=== PATIENT | female | born 1995 | race Caucasian/White ===

== ENCOUNTER → 2021-07-11 13:28 | Outpatient (CLI) | payer OTHER, SELFPAY ==
[2021-07-11 14:36] LABS: NATERA MAILED SPECIMEN
== END ==
PROVIDERS: Referring Provider Obstetrics & Gynecology; Visit Provider Obstetrics & Gynecology
DX: Z34.81 Encounter for supervision of other normal pregnancy, first trimester (principal); Z31.430 Encounter of female for testing for genetic disease carrier status for procreative management
CPT/HCPCS: 36415

== ENCOUNTER → 2021-10-24 10:38 | Outpatient (CLI) | payer OTHER, SELFPAY ==
[2021-10-24 10:52] LABS: Absolute Lymphocyte Count 0.68 X10^3/uL (0.83-4.51); Absolute Neutrophil Count 7.8 X10^3/uL (2.0-7.7); Basophil# 0.01 X10^3/uL; Basophil% 0.1 % (0-1); Eosinophil# 0.21 X10^3/uL; Eosinophils% 2.3 % (0-5); Hematocrit 34.6 % (37-47); Hemoglobin 12.3 g/dL (12.0-15.0); Lymphocyte # 0.68 X10^3/ul (0.83-4.51); Lymphocyte % 7.5 % (19-41); Mean Corp Hgb Conc 35.5 g/dL (32-36); Mean Corpuscular Hgb 30.1 pg (27.0-32.0); Mean Corpuscular Volume 84.6 fL (81-99); Mean Platelet Vol. 10.2 fl (6.2-12.0); Monocyte# 0.31 X10^3/uL; Monocyte% 3.4 % (0-10); NRBC Flagged by Analyzer 0 % (0-5); Neutrophil % 86.5 % (47-70); Platelet Count 191 K/mm3 (150-450); RBC Distribution Width CV 12.7 % (11.6-14.6); RBC Distribution Width SD 38.1 fl (35.1-43.9); Red Blood Count 4.09 M/mm3 (4.2-5.4)
[2021-10-24 11:17] LABS: Glucose Challenge Gest 1H 50g 152 mg/dL (70-140)
[2021-10-24 12:00] LABS: Hepatitis C Antibody Non-Reactive (Nonreactive); Syphilis Antibodies Non-reactive
== END ==
PROVIDERS: Referring Provider Obstetrics & Gynecology; Visit Provider Obstetrics & Gynecology
DX: O26.892 Other specified pregnancy related conditions, second trimester (principal); R09.81 Nasal congestion; Z3A.22 22 weeks gestation of pregnancy
CPT/HCPCS: 36415; 82950; 85025; 86780; 86803; 87635; U0005; U0003

== ENCOUNTER 2021-12-05 08:07 | Outpatient (CLI) | payer OTHER, SELFPAY ==
[2021-12-05 09:06] LABS: Glucose GTT-Gestation. Fasting 87 mg/dL (<105)
[2021-12-05 09:51] LABS: Glucose GTT-Gestational 1 Hr 183 mg/dL (<190)
[2021-12-05 11:27] LABS: Glucose GTT-Gestational 2 Hr 115 mg/dL (<165)
[2021-12-05 12:02] LABS: Glucose GTT-Gestational 3 Hr 45 L (<145)
== END 2021-12-05 23:59 | disposition home or self-care (01) ==
PROVIDERS: Referring Provider Obstetrics & Gynecology; Visit Provider Obstetrics & Gynecology
DX: Z13.1 Encounter for screening for diabetes mellitus (principal)
CPT/HCPCS: 36415; 82951; 82952

== ENCOUNTER 2022-01-02 17:14 | Outpatient (CLI) | payer OTHER, SELFPAY | END 2022-01-02 23:59 | disposition home or self-care (01) | LOC: LABSPEC 17:15 | PROVIDERS: Visit Provider Obstetrics & Gynecology | DX: Z34.01 Encounter for supervision of normal first pregnancy, first trimester (principal) | CPT/HCPCS: 87077; 87081; 87186 ==

== ENCOUNTER 2022-01-08 11:41 | Outpatient (CLI) | payer OTHER, SELFPAY ==
--- NOTE | 2022-01-08 11:44 | US_ITS ---
STUDY: SECOND AND THIRD TRIMESTER OBSTETRICAL ULTRASOUND REASON FOR EXAM: Female, 27 years old small for gestational age LMP: 04/23/2021. TECHNIQUE: Transabdominal TECHNICAL QUALITY: Adequate. PRIOR ULTRASOUND: None. FINDINGS: There is a single intrauterine fetus. The fetus is in a cephalic presentation. There is demonstrated cardiac activity with a heart rate of 140 bpm. There is a normal amniotic fluid volume. The largest amniotic fluid pocket measures 4.5 cm. The amniotic fluid index (FRANCESCA) is 10.8 cm. The placenta is anterior in location and is not low lying. There are Grade 3 placental changes. The cervix measures 3.8 cm in length. The adnexal regions are not visualized. BIOMETRY: BPD: 8.97 cm: 36 weeks, 2 days HC: 32.6 cm: 36 weeks, 6 days AC: 33.08 cm: 36 weeks, 6 days FL: 6.7 cm: 34 weeks, 3 days CI: 79% FL/BPD: 75% FL/HC: FL/AC: 20% HC/AC: 0.9 age by current US: 36 weeks, 3 days. YURI by current US: 02/02/2022. Estimated weight: 2910 grams, +/- 436 grams, 36 %. Age by LMP: 37 weeks, 1 days. YURI by LMP: 01/28/2022. US/OB Limited With Biometrics IMPRESSION: Single live intrauterine gestation with mean gestational age of 36 weeks and 3 days. Electronically Signed: Kenyon Del Real MD at 15:33 EST ,
== END 2022-01-08 23:59 | disposition home or self-care (01) ==
LOC: US 11:44
PROVIDERS: Referring Provider Obstetrics & Gynecology; Visit Provider Obstetrics & Gynecology
DX: O36.5930 Maternal care for other known or suspected poor fetal growth, third trimester, not applicable or unspecified (principal)
CPT/HCPCS: 76816

== ENCOUNTER 2022-02-02 15:37 | Outpatient (CLI) | payer OTHER, SELFPAY ==
--- NOTE | 2022-02-02 15:42 | US_ITS ---
History: growth Obstetrical ultrasound: Comparison: January 08, 2022 Findings: Single live intrauterine gestation in cephalic presentation, longitudinal lie. cardiac rate is 138 BPM. Anterior placenta without previa or abruption. Grade 2 maturity change. Amniotic fluis index is 13.5 cm Cervix is not evaluated. BPD 9.3cm Head circumference 33.4cm Abdominal circumference 36.4cm Femur length 7.3cm EFW 3741 g Composite gestational age by ultrasound measurements 38 weeks 2 days. Clinical gestational is 40 weeks 2 days. Clinical EDC is January 28, 2022. Interval growth rate from prior ultrasound exam is at the lower limits of normal. Impresion: Single live term or near term intrauterine gestation with interval growth at the lower limits of normal. at 1054 Reported and signed by: Antione Rabago MD Electronically Signed: Antione Rabago MD at 10:52 EDT , US/OB Limited With Biometrics
== END 2022-02-02 23:59 | disposition home or self-care (01) ==
LOC: US 15:39
PROVIDERS: Referring Provider Obstetrics & Gynecology; Visit Provider Obstetrics & Gynecology
DX: O36.5930 Maternal care for other known or suspected poor fetal growth, third trimester, not applicable or unspecified (principal); O99.810 Abnormal glucose complicating pregnancy
CPT/HCPCS: 76816

== ENCOUNTER 2022-02-04 21:20 | Inpatient (IN) | payer OTHER, SELFPAY ==
[2022-02-04] VITALS (7 sets, daily range): BP systolic 130–146; BP diastolic 83–183; PULSE 86–113; TEMP 36.5–36.9; O2SAT 93–99; BMI 36.3
[2022-02-04 21:15] LABS: ROM Internal Control Test YES-OK TO RESULT pt. (Internal QC); ROM Patient Test POSITIVE (Negative)
[2022-02-04] MEDS: Lactated Ringers 1,000 ML 50 ML IV (22:00)
[2022-02-04 22:22] LABS: Absolute Lymphocyte Count 2.63 X10^3/uL (0.83-4.51); Absolute Neutrophil Count 7.7 X10^3/uL (2.0-7.7); Basophil# 0.03 X10^3/uL; Basophil% 0.3 % (0-1); Eosinophil# 0.09 X10^3/uL; Eosinophils% 0.8 % (0-5); Hematocrit 39.5 % (37-47); Hemoglobin 14.1 g/dL (12.0-15.0); Lymphocyte # 2.63 X10^3/ul (0.83-4.51); Lymphocyte % 23.7 % (19-41); Mean Corp Hgb Conc 35.7 g/dL (32-36); Mean Corpuscular Hgb 29.7 pg (27.0-32.0); Mean Corpuscular Volume 83.3 fL (81-99); Mean Platelet Vol. 11.3 fl (6.2-12.0); Monocyte# 0.64 X10^3/uL; Monocyte% 5.8 % (0-10); NRBC Flagged by Analyzer 0 % (0-5); Neutrophil # 7.65 X10^3/uL (2.7-7.7); Platelet Count 225 K/mm3 (150-450); RBC Distribution Width SD 39.5 fl (35.1-43.9); Red Blood Count 4.74 M/mm3 (4.2-5.4); White Blood Count 11.1 K/mm3 (4.4-11.0)
[2022-02-04 22:34] LABS: Amphetamine Urine VISTA NEGATIVE (<1000 ng/mL); Barbiturate Urine VISTA NEGATIVE (< 200 ng/mL); Benzodiazepine Urine VISTA NEGATIVE (< 200 ng/mL); Cocaine Urine VISTA NEGATIVE (< 300 ng/mL); Ecstacy Urine VISTA NEGATIVE (< 500 ng/mL); Methadone Urine VISTA NEGATIVE (< 300 ng/mL); PCP Urine VISTA NEGATIVE (< 25 ng/mL); THC Urine VISTA NEGATIVE (< 50 ng/mL); Vista UDS pH Range 6
--- NOTE | 2022-02-04 22:37 | HP.PCM.OB_ITS ---
HPI - General General Date of Admission: 02/04/22 HPI Narrative LEATHA SMITH, is a 27 y/o @ 41 weeks 1 day who presents to L&D for IOL and had a spontaneous rupture of membranes before she arrived. Her was overall unremarkable with exception of early exposure to marijuana and GBS pos test. Maternal Data Information YURI Calculator Estimated Delivery Date Method Current WG Current Estimate 01/28/22 LMP (Certain) 41w 1d PFSH PFSH Home Medications multivitamin no.47-iron fum 27 mg-folate no.1 1 mg-dha 300 mg capsule 1 cap PO DAILY 07/02/21 [History Last Taken 02/03/22] epinephrine 0.22 mg/actuation aerosol for inhalation 1 puff INHALATION ONCE 07/04/21 [History Last Taken Unknown] Allergy/AdvReac Type Severity Reaction Status Date / Time No Known Allergies Allergy Verified 02/04/22 20:33 Family History Uncle Diabetes Grandmother Diabetes Grandfather Heart disease Uncle Heart disease Surgical History (Updated 02/04/22 @ 22:29 by Sunita Coronado) History of surgery History of tonsillectomy and adenoidectomy Social History household members: significant other current occupational status: employed current occupation: [employer] pets and animals: Yes sexually active: Yes Smoking Status: Former smoker second hand exposure: Yes alcohol intake: never substance use type: former substance user and marijuana seatbelt use: always do you feel safe at home: Yes additional social history: BF- Yonny History 1 Elective abortions Hx Para 0 Spontaneous abortions Hx # Term Pregnancies Ectopic pregnancies Hx # Pregnancies Multiple births # of living children Visit Details Expected Delivery Route/Plan Labor Preferences- CB/BF classes: yes labor support person: Yonny labor intervention preferences: pain management options preferred: minimal intervention, open to epidural cut cord/dad catch: yes : [yes PP control planned: discussed possible routes of delivery and associated risks: [] special requests: [] Plans Covid status: non immune, counseled regarding risk of covid in vs vaccination and declined vaccination, discussed with patient will not provide medical exemption for Flu vaccine: declined Tdap vaccine: given Rhogam: na LARC form signed: declined movement and labor precautions reviewed. Problem list reviewed and updated with the most current plan of care details and appropriate orders placed. Relevant counseling for the gestational age provided. Continue routine care and follow up unless otherwise noted in visit notes/problem list details OB Flowsheet Initial Weight: 198 lb Date -?-?-?-?-?-?-?-?-?-?-?-?- EGA Weight BP Urine Prot -?-?-?-?-?-?-?-?-?-?-?-?- Glucose FHR FuHt Pres Dilation -?-?-?-?-?-?-?-?-?-?-?-?- Effaced St Visit Note 07/04/21 -?-?-?-?-?-?-?-?-?-?-?-?- 10w 2d 198 lb (+0 oz) 122/72 122/72 Negative -?-?-?-?-?-?-?-?-?-?-?-?- Negative 170 -?-?-?-?-?-?-?-?-?-?-?-?- GP - CRL consist ent with prior US 08/01/21 -?-?-?-?-?-?-?-?-?-?-?-?- 14w 2d 202 lb (+4 lb) 116/82 Negative -?-?-?-?-?-?-?-?-?-?-?-?- Negative 160 -?-?-?-?-?-?-?-?-?-?-?-?- GP - no cramping or bleeding. Anatomy ordered. 08/29/21 -?-?-?-?-?-?-?-?-?-?-?-?- 18w 2d 206 lb (+8 lb) 104/80 Negative -?-?-?-?-?-?-?-?-?-?-?-?- Negative 150 -?-?-?-?-?-?-?-?-?-?-?-?- SM- no vb crampi ng 09/29/21 -?-?-?-?-?-?-?-?-?-?-?-?- 22w 5d 212 lb (+14 lb) 120/84 Negative -?-?-?-?-?-?-?-?-?-?-?-?- Negative 150 -?-?-?-?-?-?-?-?-?-?-?-?- SM- vb cramping, had anatomy us- obtain results 10/24/21 -?-?-?-?-?-?-?-?-?-?-?-?- 26w 2d 211 lb (+13 lb) 134/80 Negative -?-?-?-?-?-?-?-?-?-?-?-?- Negative 150 26 -?-?-?-?-?-?-?-?-?-?-?-?- SM- no vb lof go od fm nor egular ctx. SM- no vb lof good fm nor eg ular ctx. co congestion symptoms, sinus pressure, check covid test now and discussed OTC treatment, antibiotic course ordered 11/07/21 -?-?-?-?-?-?-?-?-?-?-?-?- 28w 2d 210 lb 6 oz (+12 lb 6 oz) 120/80 Negative -?-?-?-?-?-?-?-?-?-?-?-?- Negative 141 30 -?-?-?-?-?-?-?-?-?-?-?-?- JV- tdap today. pt still needs to do her GTT. No lof, vaginal bleeding, or dec fm 12/12/21 -?-?-?-?-?-?-?-?-?-?-?-?- 33w 2d 217 lb (+19 lb) 110/70 Negative -?-?-?-?-?-?-?-?-?-?-?-?- Negative 140 33 Breech -?-?-?-?-?-?-?-?-?-?-?-?- SM- no vb lof go od fm no reuglar ctx 12/26/21 -?-?-?-?-?-?-?-?-?-?-?-?- 35w 2d 220 lb 4 oz (+22 lb 4 oz) 124/82 Negative -?-?-?-?-?-?-?-?-?-?-?-?- Negative 140 35 Cephalic -?-?-?-?-?-?-?-?-?-?-?-?- SM- no vb lof go od fm no regular ctx 01/02/22 -?-?-?-?-?-?-?-?-?-?-?-?- 36w 2d 222 lb 6 oz (+24 lb 6 oz) 120/88 Negative -?-?-?-?-?-?-?-?-?-?-?-?- Negative 145 33 Cephalic -?-?-?-?-?-?-?-?-?-?-?-?- JV- no lof, vagi nal bleeding or dec fm. measuring small. growth ultrasound ordered. 01/09/22 -?-?-?-?-?-?-?-?-?-?-?-?- 37w 2d 225 lb (+27 lb) 130/80 Negative -?-?-?-?-?-?-?-?-?-?-?-?- Negative 140 36 Cephalic -?-?-?-?-?-?-?-?-?-?-?-?- SM- no vb lof go od fm no regular ctx 01/16/22 -?-?-?-?-?-?-?-?-?-?-?-?- 38w 2d 222 lb (+24 lb) 96/72 Negative -?-?-?-?-?-?-?-?-?-?-?-?- Negative 130 37 Cephalic -?-?-?-?-?-?-?-?-?-?-?-?- SM- no vb lof go od fm no regular ctx 01/23/22 -?-?-?-?-?-?-?-?-?-?-?-?- 39w 2d 223 lb 2 oz (+25 lb 2 oz) 120/86 Negative -?-?-?-?-?-?-?-?-?-?-?-?- Negative 134 36 Cephalic -?-?-?-?-?-?-?-?-?-?-?-?- JV- no lof, vagi nal bleeding, or dec fm. no complaints. labor precautions discussed. 01/30/22 -?-?-?-?-?-?-?-?-?-?-?-?- 40w 2d 224 lb (+26 lb) 127/89 -?-?-?-?-?-?-?-?-?-?-?-?- 130 35 Cephalic 1 -?-?-?-?-?-?-?-?-?-?-?-?- 40 -2 Sm- no vb lof good fm no regular ctx 02/02/22 -?-?-?-?-?-?-?-?-?-?-?-?- 40w 5d 224 lb (+26 lb) 122/88 -?-?-?-?-?-?-?-?-?-?-?-?- 130 36 Cephalic 1 -?-?-?-?-?-?-?-?-?-?-?-?- 50 -2 SM- no vb lof good fm no regular ctx discussed IOL 41 02/04/22 -?-?-?-?-?-?-?-?-?-?-?-?- 41w 0d 224 lb 12.8 oz (+26 lb 12.8 oz) 139/88 136/83 134/93 146/97 130/85 128/85 132/84 138/86 143/83 146/87 146/87 145/90 114/71 124/58 120/70 116/58 114/60 122/71 148/81 114/58 100/58 120/64 97/53 129/62 -?-?-?-?-?-?-?-?-?-?-?-?- -?-?-?-?-?-?-?-?-?-?-?-?- NST FHR Rate Baby A Variability:: Moderate Accelerations:: None and 15 x 15 Decelerations:: None NST Reactive:: Yes Uterine Activity:: minimal contractions ROS Constitutional Constitutional: Denies change in weight, fatigue, fever(s), headache(s), poor appetite or weakness Eyes Eyes: Denies blurry vision, change in vision, seeing flashes or spots in vision ENT HEENT: Denies dizziness, headache(s), loss taste/smell or sore throat Cardiovascular Cardiovascular: Denies chest pain, dizziness, dyspnea, irregular heart rhythm, leg edema, palpitations, rapid heart rate or vomiting Respiratory/Chest Respiratory/Chest: Denies chest tightness, cough, dyspnea or breast pain Gastrointestinal Gastrointestinal: Denies abdominal pain, anorexia, constipation, cramping, diarrhea, hemorrhoids, vomiting or weight changes Genitourinary Genitourinary: Denies dysuria, flank pain, genital lesions, genital pain, urinary frequency or urinary urgency Musculoskeletal Musculoskeletal: Denies back pain, difficulty walking, joint pain, limited range of motion, muscle cramps or numbness Integumentary Integumentary: Denies lesions or unusual bruising Neurologic Neurologic: Denies abnormal movements, abnormal speech, dizziness, numbness, seizure-like activity or syncope Psychiatric Psychiatric: Denies anxiety, behavioral changes, change in appetite, change in libido, cognitive impairment, confusion, depression, difficulty concentrating, hallucinations or suicidal thoughts Endocrine Endocrinology: Denies excessive sweating, polydipsia or polyuria Hematologic/Lymphatic Hematologic/Lymphatic: Denies easy bleeding, easy bruising or lymphadenopathy Allergic/Immunologic Allergic/Immunologic: Denies itchy eyes, lip swelling, seasonal rhinorrhea, rhinitis, throat swelling, tongue swelling, eczemia, wheezing or asthma Vital Signs Vital Signs Vital Signs: 02/04/22 20:25 02/04/22 20:26 02/04/22 20:46 Temperature 98.4 F 98.4 F Temperature Source Temporal Pulse Rate 113 H 106 H 87 Blood Pressure 139/88 H 136/83 H BP Systolic 139 136 BP Diastolic 88 183 Pulse Ox 97 93 99 02/04/22 21:26 02/04/22 22:56 02/04/22 23:41 Temperature 97.7 F L 97.9 F Temperature Source Temporal Pulse Rate 86 92 Blood Pressure 134/93 H 146/97 H BP Systolic 134 146 BP Diastolic 93 97 Pulse Ox 99 02/04/22 23:43 02/05/22 00:50 02/05/22 01:51 Temperature 98.1 F 97.5 F L Temperature Source Temporal Pulse Rate 94 88 75 Blood Pressure 130/85 H 128/85 H 132/84 H BP Systolic 130 128 132 BP Diastolic 85 85 84 Pulse Ox 98 97 97 02/05/22 02:20 02/05/22 02:25 02/05/22 02:28 Temperature Temperature Source Pulse Rate 89 85 78 Blood Pressure BP Systolic 124 BP Diastolic Pulse Ox 98 98 02/05/22 02:30 02/05/22 02:33 02/05/22 02:34 Temperature Temperature Source Pulse Rate 83 93 87 Blood Pressure 138/86 H 143/83 H BP Systolic 138 143 BP Diastolic 86 83 Pulse Ox 98 02/05/22 02:35 02/05/22 02:39 02/05/22 02:40 Temperature Temperature Source Pulse Rate 93 88 92 Blood Pressure 146/87 H BP Systolic 146 BP Diastolic 87 Pulse Ox 98 99 02/05/22 02:43 02/05/22 02:45 02/05/22 02:48 Temperature Temperature Source Pulse Rate 79 81 99 Blood Pressure 146/87 H 145/90 H BP Systolic 146 145 BP Diastolic 87 90 Pulse Ox 98 02/05/22 02:50 02/05/22 02:54 02/05/22 02:55 Temperature Temperature Source Pulse Rate 96 88 106 H Blood Pressure 114/71 BP Systolic 114 BP Diastolic 71 Pulse Ox 99 98 02/05/22 02:58 02/05/22 03:00 02/05/22 03:01 Temperature Temperature Source Pulse Rate 85 85 93 Blood Pressure 124/58 H 120/70 BP Systolic 124 120 BP Diastolic 58 70 Pulse Ox 99 02/05/22 03:03 02/05/22 03:05 02/05/22 03:08 Temperature Temperature Source Pulse Rate 80 95 86 Blood Pressure 116/58 L 114/60 BP Systolic 116 114 BP Diastolic 58 60 Pulse Ox 100 02/05/22 03:10 02/05/22 03:13 02/05/22 03:15 Temperature Temperature Source Pulse Rate 90 87 100 Blood Pressure 122/71 H BP Systolic 122 BP Diastolic 71 Pulse Ox 99 99 02/05/22 03:19 02/05/22 03:22 02/05/22 03:24 Temperature 97.3 F L Temperature Source Pulse Rate 118 H 96 Blood Pressure 148/81 H 114/58 L BP Systolic 148 114 BP Diastolic 81 58 Pulse Ox 02/05/22 03:55 02/05/22 04:20 02/05/22 04:21 Temperature Temperature Source Pulse Rate 78 144 H 103 H Blood Pressure 100/58 L BP Systolic 100 BP Diastolic 58 Pulse Ox 93 99 02/05/22 04:24 02/05/22 04:26 02/05/22 05:01 Temperature Temperature Source Pulse Rate 125 H 103 H 101 H Blood Pressure 120/64 97/53 L BP Systolic 120 97 BP Diastolic 64 53 Pulse Ox 100 02/05/22 05:13 Temperature Temperature Source Pulse Rate 93 Blood Pressure 129/62 H BP Systolic 129 BP Diastolic 62 Pulse Ox Weight Weight: 224 lb 12.8 oz Body Mass Index (BMI) 36.3 Physical Exam Const alert, oriented x3, no apparent distress and healthy appearing General Appearance: cooperative; Negative for anxious HEENT normocephalic Face and Sinus: normal facial exam Eyes EOMs intact bilaterally and no scleral icterus General Eye: normal appearance of both eyes Neck full ROM and supple Lymph Lymphatic: no lymphadenopathy noted Chest Chest: abnormal inspection of the chest Resp normal respiratory effort Effort and Inspection: able to speak in complete sentences Cardio regular rate GI soft to palpation and non-tender Inspection: gravid Palpation: soft; Negative for tender external exam normal Amniotic Fluid: ROM+plus Back/Spine no CVA tenderness Extremity normal to inspection, full ROM and no clubbing, cyanosis or edema General Extremity: Negative for calf tenderness or edema Skin Lesions: no lesions Rashes: no rashes Psych mental status grossly normal Labs Labs Labs: Blood Type AB POSITIVE Antibody Screen NEGATIVE Hct 39.5 % (37-47) Hgb 14.1 g/dL (12.0-15.0) Obstetrics US Syphilis Total Ab Non-reactive Glucose 1 Hr 50 gm 152 mg/dL (70-140) H Assessment & Plan (1) : QUALIFIERS: Weeks of gestation: 40 weeks Qualified Code(s): Z3A.40 - 40 weeks gestation of COMMENT: ANGELICA from [facility]. Low risk NIPT, carrier neg. 13/14 +for 2 variants in gene associated with CF. Recommend FOB to be tested- declined. Anatomy US normal. 36 week growth US normal (2) Supervision of normal : QUALIFIERS: Normal : normal first Trimester: first trimester Qualified Code(s): Z34.01 - Encounter for supervision of normal first , first trimester COMMENT: PRR (syphilis, hep c, gc/c) YURI: 01/28/22, boy, BF: Yonny (3) Marijuana abuse: COMMENT: BF still uses; patient has not used since she found out she was expecting (4) Abnormal glucose affecting : COMMENT: Normal 3hr GTT (5) Ztsae-hrx-eeeyt fetus, third trimester: COMMENT: growth 34 %ile, repeat growth 02/02. carlos 13 on 01/30 (6) Positive GBS test: COMMENT: PCN at delivery PLAN: Patient presents IOL, plan management for with pitocin. Pain management: plans epidural. GBS positive- start pcn. Management of any complications: none I have reviewed the [facility] and made any clinically relevant updates.
[2022-02-04] MEDS: Oxytocin 30 units/NS 500 ml 30 UNITS/500 ML IV.SOLN IV (22:40)
[2022-02-04 22:42] LABS: AST(SGOT) 17 U/L (15-37); Alanine Aminotransfer ALT/SGPT 16 U/L (13-56); Creatinine, Serum 0.85 mg/dL (0.55-1.02); EST Glomerular Filtration Rate 84 mL/min (>60); Est Glom Filt Rate - Afr Amer 102 mL/min (>60); Estimated Creatinine Clearance 92.24 ml/min; Uric Acid 5.6 mg/dL (2.6-6.0)
[2022-02-05] VITALS (54 sets, daily range): BP systolic 97–148; BP diastolic 53–93; PULSE 75–144; RESP 12–18; TEMP 36.1–37.3; O2SAT 92–100
--- NOTE | 2022-02-05 | PLAC_PTH ---
PATIENT: LEATHA SMITH LOC: [facility] U#:[id number] AGE/SX: 27/F ROOM: [facility] RE02/04/[address]: Dr. Jessica Cabello DO : 1995 BED: 1 DIS: 02/06/2022 SPEC #: [id number] RECD: 02/05/22 12:49 STATUS: SUKHWINDER PILAR #: [id number] GIOVANNA: 02/05/22 00:[address]: Jessica Cabello DEPT: SURGICAL PATHOLOGY RECD BY: Johnson Brown ENTERED: 02/05/22 12:50 SP TYPE: PLACENTA OTHR DR: No Primary Care Phys Tissues: Placenta, NOS Procedures: Surgery Specimen Level V HEADER OPERATION: Primary section PRE-OP DIAGNOSIS: Labor TISSUE SUBMITTED: Placenta MICROSCOPIC DIAGNOSIS Placenta: Placental disc - third trimester placenta (464 gm). Membranes - no pathologic diagnosis. Umbilical cord - three blood vessels and no pathologic diagnosis. SJ:rg 02/09/2022 MICROSCOPIC DESCRIPTION Slides are reviewed. GROSS DESCRIPTION SPECIMEN: PLACENTA / CLINICAL INFORMATION: A. Weight: 3.705 kg B. Gestational Age: 41 weeks C. Sex: Male PLACENTAL WEIGHT (POST FIXATION): 464 gm PLACENTAL DIMENSIONS: 17 x 16 x 3 cm PLACENTAL SHAPE: Usual ovoid PLACENTAL WEIGHT FOR GESTATIONAL AGE: Within 10-99th percentile MEMBRANES - Present A. Insertion: Marginal B. Site of rupture from edge: At edge of placental disc C. Color of membrane: Russo-jeffery D. Abnormalities: None UMBILICAL CORD - Present A. Color: Russo-jeffery B. Insertion: Eccentric C. Length: 44 cm D. Diameter: 1.2 cm E. Number of vessels: Three F. Abnormalities: None PLACENTAL DISC - Present A. Color of surface: Russo-jeffery B. surface abnormalities: None C. Maternal cotyledons: Intact with minimal tears D. Attached retro placental clot: No clot E. Cut surface: Dark red and spongy F. Lesions: None G. Separate clot: 7 x 5 x 1 cm SECTIONS SUBMITTED: 1. Umbilical cord ( end notched) 2. Umbilical cord, placental end 3. Membrane roll 4. Placental disc, and maternal surfaces 5. Placental disc, and maternal surfaces 6. Placental disc, and maternal surfaces AM:orlando 02/06/2022 TC:5 CPT: 30193
[2022-02-05 00:20] LABS: Partial Thromboplast Time 30.6 Seconds (24.1-36.2); Prothrombin Time (Protime)PT. 12.2 SECONDS (11.7-14.9)
[2022-02-05 01:55] LABS: Chlamydia Trachomatis by PCR Negative (Negative); Neisserai gonorrhoeae by PCR Negative (Negative); Probe Check PASS; Sample Adequacy Control PASS; Specimen Processing Control PASS
[2022-02-05] MEDS: Lactated Ringers 500 ML 999 ML IV ×2 (01:55→04:19)
[2022-02-05] MEDS: Mag Hydrox/Al Hydrox/Simeth 30 ML UDC PO (01:55)
[2022-02-05] MEDS: Penicillin G 3,000,000 Units 50 ML 100 UNITS IV (02:27)
[2022-02-05] MEDS: fentaNYL-bupivacaine (epidural) 100 ML BAG EPIDURAL (03:24)
[2022-02-05] MEDS: 0.9% Saline Lock 10 ML Syringe IV ×3 (04:44→20:30)
[2022-02-05] MEDS: Amnioinfusion- 0.9% NS 1,000 ML IV.SOLN. 1000 ML INTRA-UTER (04:57)
[2022-02-05] MEDS: Terbutaline 1 MG/ML Vial 0.25 MG SC (05:10)
[2022-02-05] MEDS: Sodium Citrate/Citric Acid 30 ML UDC PO (05:24)
[2022-02-05] MEDS: Cefazolin 2 GM in 0.9% Normal Saline 100 ML IV (05:28)
[2022-02-05] MEDS: Oxytocin 30 units/NS 500 ml 30 UNITS/500 ML IV.SOLN 167 UNITS IV (06:30)
--- NOTE | 2022-02-05 06:30 | PCM.PN.BLA ---
Progress Note nurses called at 4:45 with the report that there was a prolonged deceleration followed by minimal variability. Instructions were given to give a bolus of fluids, stop Pitocin, administer )2, and position change. After 20 minutes, persistent minimal variability followed by late decelerations were present. The nurse checked the patient before I arrived to the hospital and a large gush or bright red blood was present. The decision was made to proceed with urgent section due to intolerance to labor with high suspicion for abruption.
--- NOTE | 2022-02-05 06:32 | OP.PCM_ITS ---
Assessment & Plan (1) Supervision of normal : QUALIFIERS: Normal : normal first Trimester: first trimester Qualified Code(s): Z34.01 - Encounter for supervision of normal first , first trimester COMMENT: PRR (syphilis, hep c, gc/c) YURI: 01/28/22, boy, BF: Yonny (2) Marijuana abuse: COMMENT: BF still uses; patient has not used since she found out she was expecting (3) Abnormal glucose affecting : COMMENT: Normal 3hr GTT (4) Imnho-tvk-uysvp fetus, third trimester: COMMENT: growth 34 %ile, repeat growth 02/02. carlos 13 on 01/30 (5) Positive GBS test: COMMENT: PCN at delivery Maternal Data Information YUIR Calculator Estimated Delivery Date Method Current WG Current Estimate 01/28/22 LMP (Certain) 41w 1d Details Operative Information Date of Procedure: 02/05/22 Pre-Operative Diagnosis: 41 weeks 1 day , intolerance to labor, s uspect abruption Post-Operative Diagnosis: 41 weeks 1 day , intolerance to labor, suspect abruption Classification: LAUREN Procedure Type: low transverse advertising sales agent #1: Kaila Caro Type of Anesthesia: Epidural Antibiotic Given: Ancef 2 grams IV x1 Estimated Blood Loss: 400cc Procedure Start Time: 05:37 Procedure Stop Time: 05:51 Time of Delivery: 06:08 Findings Description of Procedure: Epidural anesthesia was placed without difficulty. Melo catheter was placed. The patient was placed in the dorsal supine position with leftward tilt. Patient was prepped and draped in the normal sterile fashion. Pfannenstiel skin incision was made with the scalpel and carried through to the underlying layer of fascia with the scalpel. Fascia was nicked in the midline and the incision extended laterally. The rectus bellies were dissected off superiorly and inferiorly with out complication both sharply and bluntly. The peritoneum was entered digitally. The incision was stretched and a low transverse uterine incision was made with the scalpel. The infant's head was delivered atraumatically followed by the anterior and posterior shoulders without complication the rest of the infant delivered. The cord was clamped and cut and the was handed off to awaiting nurse. The placenta was delivered spontaneously immediately following and was noted to be intact and have a three- vessel cord. The uterus was exteriorized cleared of all clots and debris, and the incision was closed in a double layer closure using a #1 vicryl and a #1 Monocryl. The ovaries and fallopian tubes were noted to be within normal limits. The uterus was returned to the maternal abdomen and gutters were cleared of all clots and debris. The peritoneum was closed with 3-0 Monocryl in a running fashion. Fascia was closed with 0 PDS in a running fashion. Subcutaneous tissue was copiously irrigated and the skin was closed with 3-0 Monocryl in a subcuticular fashion. Mepilex dressing was applied without complication. Patient was taken to recovery in stable condition. It was discussed with the patient that based on the clinical information obtained during this encounter, combined with her history, at this time I would recommend or repeat for future deliveries if further pregnancies are desired. Presentation: Positive for Vertex Amniotic Membrane Rupture Type: Spontaneous Amniotic Fluid Description: Bloody Percentage of Placenta Abruption: 10 Specimen(s) Sent to Pathology: placenta Cord Vessel Description: 3 Vessels Cord Entanglement: None Cord Gases: ABG and VBG A Gender: Male (1 minute): 8 (5 minute): 9 Delayed Cord Clamping: Yes Complications Risks of Surgery Discussed w/Patient: Bleeding, Anesthesia Risks, Infection and Need for Future C-Sections Complications: no complications Multi Select Codes Urinary/Genital Urinary/Genital CPT Codes: 63536 Delivery [facility]
--- NOTE | 2022-02-05 06:39 | PCM.DC ---
Discharge Instructions Diet Discharge Diet: No restrictions Activity Discharge Activity: May Not Drive (for 2 weeks or while taking narcotic pain medications.), May Shower and May Take a Tub Bath (in 7 days.) May resume sexual activity in: 4-6 weeks Weight Bearing Status: Full weight bearing Lifting Restrictions: 20 pounds Dressing / Incision Call your doctor if your incision/area has: Continuous Slow Oozing, Sudden Increased Bleeding, Increased Pain/ Swelling, Increased Redness and Foul Smelling Discharge Call your doctor if you observe: Fever of 101 or Higher and Using more than 1 pad per hour Suture Line Care: Avoid Pulling/Pushing and Avoid Pinching/Bending Cleanse incision/area with: Soap & Water and Keep Dressing Clean & Dry Follow Up Care Please Follow Up With: Jessica Cabello DO When: Call [phone] to make an appointment for an incision check in 1-2 weeks. Test Results: Test results from this visit will be discussed in further detail at your follow-up appointment, if applicable. Discharge Plan Admission Admit Date/Time: 02/04/22 21:20 Primary Reason for Your Visit: section Attending Provider: Jessica Cabello Primary Care Provider: Mahesh Physician,Beth Primary Discharge Orders/Prescriptions Prescriptions: New docusate sodium [Colace] 100 mg capsule 100 mg PO DAILY 14 Days Qty: 14 RF: 0 oxycodone-acetaminophen [Percocet] 5-325 mg tablet 1 tab PO Q4H PRN (Reason: pain (scale score 7-10)) 7 Days Qty: 28 RF: 0 ibuprofen 600 mg tablet 600 mg PO Q6H PRN (Reason: pain (scale score 4-6)) 7 Days Qty: 28 RF: 0 Continued PNV-DHA 27 mg iron-1 mg -300 mg capsule 1 cap PO DAILY RF: 0 Discontinued epinephrine 0.22 mg/actuation aerosol 1 puff inhalation ONCE RF: 0 Referrals / Follow Up: Care Physician,No Primary [Primary Care Provider] - Disposition Disposition (needs filled in before D/C Order can be placed): Home, Self Care
[2022-02-05] MEDS: Methylergonovine 0.2 MG/ML Ampul IM (06:40)
[2022-02-05] MEDS: Ketorolac 30 MG/ML Syringe IV ×3 (08:19→20:30)
--- NOTE | 2022-02-05 09:08 | NURSING ---
Epidural catheter removed. Tip intact. Pt tolerated well
[2022-02-05] MEDS: Prenatal Vits Tablet 1 TABLET PO (09:16)
[2022-02-05] MEDS: Senna/Docusate Sodium 1 Tablet PO (09:16)
[2022-02-05] MEDS: Acetaminophen 500 MG Tablet 1000 MG PO ×3 (09:16→20:30)
[2022-02-05] MEDS: Lactated Ringers 1,000 ML 100 ML IV (09:44)
[2022-02-05 11:35] LABS: Pathology Specimen OB SEE PATHOLOGY REPORT
--- NOTE | 2022-02-05 13:07 | NURSING ---
Pt Iv put to saline lock for first ambulation. Pt bocanegra had 1500cc emptied right before ambulation and has drank 1.5 L of water since delivery
[2022-02-06 00:58] VITALS: BP 104/64; PULSE 78; RESP 16; TEMP 36.3; O2SAT 96
[2022-02-06] MEDS: Acetaminophen 500 MG Tablet 1000 MG PO ×3 (02:58→15:47)
[2022-02-06] MEDS: 0.9% Saline Lock 10 ML Syringe IV (02:58)
[2022-02-06] MEDS: Ketorolac 30 MG/ML Syringe IV (02:58)
[2022-02-06 05:00] VITALS: BP 108/71; PULSE 76; RESP 16; TEMP 36.1; O2SAT 98
[2022-02-06 05:48] LABS: Hematocrit 35.5 % (37-47); Hemoglobin 12.3 g/dL (12.0-15.0); Mean Corp Hgb Conc 34.6 g/dL (32-36); Mean Corpuscular Hgb 30.1 pg (27.0-32.0); Mean Platelet Vol. 10.8 fl (6.2-12.0); Platelet Count 181 K/mm3 (150-450); RBC Distribution Width CV 13.2 % (11.6-14.6); RBC Distribution Width SD 41.9 fl (35.1-43.9); Red Blood Count 4.08 M/mm3 (4.2-5.4); White Blood Count 10.5 K/mm3 (4.4-11.0)
--- NOTE | 2022-02-06 07:50 | PN.OBGYN_ITS ---
Subjective Subjective Patient is laying in bed comfortably without complaints. She states that she slept on an off during the night. Lochia is mild and pain is minimal. Objective Data Objective Data Vital Signs: Vital Signs Temp Pulse Resp BP Pulse Ox 97 F L 76 16 108/71 98 02/06/22 05:00 02/06/22 05:00 02/06/22 05:00 02/06/22 05:00 02/06/22 05:00 Oxygen Delivery Method Room Air Weight: 224 lb 12.8 oz Body Mass Index (BMI) 36.3 Intake & Output: Intake and Output for Last 24 Hours 02/04/22 02/05/22 02/06/22 23:59 23:59 23:59 Intake Total 1606.93 / 1606.93 4586.36 / 4586.36 Output Total 4600 / 4600 Balance 1606.93 / 1606.93 -13.64 / -13.64 Lab / Micro Data Result Diagrams: 02/06/22 05:35 02/04/22 22:00 Labs: Laboratory Results - last 24 hr 02/06/22 05:35: WBC 10.5, RBC 4.08 L, Hgb 12.3, Hct 35.5 L, MCV 87.0, MCH 30.1, MCHC 34.6, RDW Std Deviation 41.9, RDW Coeff of Hugo 13.2, Plt Count 181, MPV 10.8 Micro: Microbiology 02/04/22 22:00 Nasal Secretion SARS-CoV-2 Antigen (Rapid) - Final ROS Constitutional Constitutional: Reports systems reviewed and no addt'l complaints, except as documented Cardiovascular Cardiovascular: Denies chest pain, dizziness, dyspnea or irregular heart rhythm Respiratory/Chest Respiratory/Chest: Denies cough, pain on inspiration or shortness of breath at rest Gastrointestinal Gastrointestinal: Denies abdominal pain, nausea or vomiting Genitourinary Genitourinary: Denies burning urination Musculoskeletal Musculoskeletal: Denies muscle cramps, muscle spasms or muscle weakness Neurologic Neurologic: Denies confusion, dizziness, headache(s) or lack of coordination Psychiatric Psychiatric: Denies anxiety, behavioral changes or depression Physical Exam HEENT normocephalic Resp normal respiratory effort and normal air movement GI soft to palpation, non-tender and non-distended Rectal Exam: other Other Details: Incision is clean, dry, and intact no CVA tenderness Extremity normal to inspection General Extremity: edema bilateral (trace ) Assessment & Plan (1) Status post delivery: COMMENT: JV- Baby boy Kendall. section for abruption at 41 weeks 1 day (2) : QUALIFIERS: Weeks of gestation: 40 weeks Qualified Code(s): Z3A.40 - 40 weeks gestation of COMMENT: ANGELICA from [facility]. Low risk NIPT, carrier neg. 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 Recommend FOB to be tested- declined. Anatomy US normal. 36 week growth US normal (3) Supervision of normal : QUALIFIERS: Normal : normal first Trimester: first trimester Qualified Code(s): Z34.01 - Encounter for superv ision of normal first , first trimester COMMENT: PRR (syphilis, hep c, gc/c) YURI: 01/28/22, boy, BF: Yonny (4) Marijuana abuse: COMMENT: BF still uses; patient has not used since she found out she was expecting (5) Abnormal glucose affecting : COMMENT: Normal 3hr GTT (6) Cxlpp-dbs-vakmy fetus, third trimester: COMMENT: growth 34 %ile, repeat growth 02/02. carlos 13 on 01/30 (7) Positive GBS test: COMMENT: PCN at delivery PLAN: s/p LTCS PPD # 1 patient wants to go home today if possible 1. routine post care 2. breast feeding- support given 3. rh positive 4. rubella immune
[2022-02-06 08:17] VITALS: BP 105/78; PULSE 91; RESP 16; TEMP 36.4; O2SAT 98
[2022-02-06] MEDS: Prenatal Vits Tablet 1 TABLET PO (09:39)
[2022-02-06] MEDS: Senna/Docusate Sodium 1 Tablet PO (09:39)
[2022-02-06] MEDS: Ibuprofen 600 MG Tablet PO (12:26)
[2022-02-06 15:48] VITALS: BP 106/55; PULSE 75; RESP 14; TEMP 36.6; O2SAT 97
[2022-02-06 18:35] VITALS: RESP 16
== END 2022-02-06 19:09 | disposition home or self-care (01) | DRG 787 ==
LOC: WPOUT 21:26 → WP 21:26
PROVIDERS: Admitting Provider Obstetrics & Gynecology; Visit Provider Obstetrics & Gynecology
DX: O45.93 Premature separation of placenta, unspecified, third trimester (principal); O99.324 Drug use complicating childbirth; F12.10 Cannabis abuse, uncomplicated; O76 Abnormality in fetal heart rate and rhythm complicating labor and delivery; O36.5930 Maternal care for other known or suspected poor fetal growth, third trimester, not applicable or unspecified; O99.824 Streptococcus B carrier state complicating childbirth; Z20.822 Contact with and (suspected) exposure to COVID-19; Z37.0 Single live birth; O48.0 Post-term pregnancy; Z3A.41 41 weeks gestation of pregnancy; Z87.891 Personal history of nicotine dependence
CPT/HCPCS: 59050; 80307; 82565; 84112; 84450; 84460; 84550; 85025; 85027; 85610; 85730; 86850; 86900; 86901; 87491; 87591; 87811; 88307; 99218; J7030; J7120; A4216; G0378

== ENCOUNTER → 2022-03-26 | Outpatient (CLI) | payer OTHER, SELFPAY ==
[2022-04-02 10:37] LABS: HPV Reflexed? NOT INDICATED
== END | disposition home or self-care (01) ==
LOC: LABSPEC 13:52
PROVIDERS: Visit Provider Obstetrics & Gynecology
DX: Z12.4 Encounter for screening for malignant neoplasm of cervix (principal)
CPT/HCPCS: 88175; G0145

== ENCOUNTER → 2025-01-24 | Outpatient (CLI) | payer OTHER, SELFPAY ==
[2025-01-24 17:47] LABS: hCG Titer Quant., Serum 5568 mIU/mL (<9 non-preg)
== END | disposition home or self-care (01) ==
PROVIDERS: Referring Provider Obstetrics & Gynecology; Visit Provider Obstetrics & Gynecology
DX: O26.859 Spotting complicating pregnancy, unspecified trimester (principal); Z3A.00 Weeks of gestation of pregnancy not specified
CPT/HCPCS: 36415; 84702